=== PATIENT | male | born 1990 | race American Indian/Alaskan Native ===

== ENCOUNTER 2019-07-14 23:28 | Emergency (ER) | payer OTHER ==
[2019-07-15] MEDS ORDERED: NORCO 5/325 PO ONE (01:07)
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
--- NOTE | 2019-07-15 01:46 | XRay Report ---
LUMBAR SPINE, AP AND LATERAL VIEWS 07/15/2019 INDICATION / CLINICAL INFORMATION: low back pain. COMPARISON: None available. FINDINGS: Disc interspaces are normal. There is slight scoliosis, concavity to the right. No compression fractures or other skeletal abnormality. No spondylolisthesis. Signer Name: Dillon Mendez MD Signed: 07/15/2019 1:42 AM Workstation Name: [id number]
[2019-07-15 04:39] VITALS: BP 128/78
== END 2019-07-15 02:35 | disposition home or self-care (01) ==
LOC: ED 23:28
DX: S39.012A Strain of muscle, fascia and tendon of lower back, initial encounter (principal); Z79.899 Other long term (current) drug therapy; Z91.048 Other nonmedicinal substance allergy status; V49.49XA Driver injured in collision with other motor vehicles in traffic accident, initial encounter; Y93.89 Activity, other specified; Y92.89 Other specified places as the place of occurrence of the external cause; Y99.8 Other external cause status
CPT/HCPCS: 72100